=== PATIENT | female | born 1980 | race Two or more races ===

== ENCOUNTER → 2020-12-11 | Outpatient (CLI) | payer OTHER | END | disposition home or self-care (01) | LOC: RAD 09:46 | DX: M54.59 Other low back pain (principal); M54.16 Radiculopathy, lumbar region ==

== ENCOUNTER → 2021-04-11 11:17 | Outpatient (CLI) | payer OTHER | END | disposition home or self-care (01) | LOC: LAB 11:17 | PROVIDERS: ATTEND Obstetrics & Gynecology | DX: D50.9 Iron deficiency anemia, unspecified (principal); R10.9 Unspecified abdominal pain; E03.9 Hypothyroidism, unspecified; E55.9 Vitamin D deficiency, unspecified; Z12.11 Encounter for screening for malignant neoplasm of colon; E78.2 Mixed hyperlipidemia; N39.0 Urinary tract infection, site not specified ==

== ENCOUNTER 2021-04-11 11:50 | Outpatient (CLI) | payer OTHER | END 2021-04-11 12:00 | disposition home or self-care (01) | LOC: RAD 11:50 | PROVIDERS: ATTEND Obstetrics & Gynecology | DX: N64.4 Mastodynia (principal); R10.2 Pelvic and perineal pain; M54.50 Low back pain, unspecified; M51.26 Other intervertebral disc displacement, lumbar region; G60.9 Hereditary and idiopathic neuropathy, unspecified ==

== ENCOUNTER 2021-04-23 08:51 | Outpatient (CLI) | payer OTHER | END 2021-04-23 08:55 | disposition home or self-care (01) | LOC: LAB 08:51 | PROVIDERS: ATTEND Obstetrics & Gynecology | DX: R10.9 Unspecified abdominal pain (principal); N28.9 Disorder of kidney and ureter, unspecified ==

== ENCOUNTER 2021-04-29 08:00 | Outpatient (CLI) | payer OTHER | END 2021-04-29 08:09 | disposition home or self-care (01) | LOC: MRI 08:00 | PROVIDERS: ATTEND Obstetrics & Gynecology | DX: R19.00 Intra-abdominal and pelvic swelling, mass and lump, unspecified site (principal) | CPT/HCPCS: 72196 ==

== ENCOUNTER 2021-05-19 12:30 | Outpatient (CLI) | payer OTHER | END 2021-05-19 12:39 | disposition home or self-care (01) | LOC: RAD 12:30 | PROVIDERS: ATTEND Obstetrics & Gynecology Obstetrics | DX: Z01.810 Encounter for preprocedural cardiovascular examination (principal) ==

== ENCOUNTER 2021-07-01 07:33 | Outpatient (CLI) | payer OTHER | END 2021-07-01 07:38 | disposition home or self-care (01) | LOC: RAD 07:33 | PROVIDERS: ATTEND Obstetrics & Gynecology Obstetrics | DX: Z01.810 Encounter for preprocedural cardiovascular examination (principal) ==

== ENCOUNTER 2021-07-02 09:21 | Outpatient (CLI) | payer OTHER | END 2021-07-02 09:24 | disposition home or self-care (01) | LOC: LAB 09:21 | PROVIDERS: ATTEND Obstetrics & Gynecology Obstetrics | DX: Z01.812 Encounter for preprocedural laboratory examination (principal); D68.8 Other specified coagulation defects ==

== ENCOUNTER 2022-04-29 09:33 | Outpatient (CLI) | payer OTHER | END 2022-04-29 09:34 | disposition home or self-care (01) | LOC: LAB 09:33 | DX: D50.9 Iron deficiency anemia, unspecified (principal); R10.9 Unspecified abdominal pain; E03.9 Hypothyroidism, unspecified; E78.2 Mixed hyperlipidemia; N39.0 Urinary tract infection, site not specified; N91.2 Amenorrhea, unspecified ==

== ENCOUNTER 2022-05-11 13:28 | Outpatient (CLI) | payer OTHER | END 2022-05-11 13:39 | disposition home or self-care (01) | LOC: MAMO-SONO 13:28 | DX: R10.2 Pelvic and perineal pain (principal); N64.4 Mastodynia ==

== ENCOUNTER 2022-06-29 08:54 | Outpatient (CLI) | payer OTHER | END 2022-06-29 08:58 | disposition home or self-care (01) | LOC: LAB 08:54 | DX: N83.209 Unspecified ovarian cyst, unspecified side (principal); E27.9 Disorder of adrenal gland, unspecified; B34.9 Viral infection, unspecified ==

== ENCOUNTER 2022-08-09 15:29 | Outpatient (CLI) | payer OTHER | END 2022-08-09 15:47 | disposition home or self-care (01) | LOC: MRI 15:29 | DX: M25.562 Pain in left knee (principal); M25.462 Effusion, left knee; S83.242A Other tear of medial meniscus, current injury, left knee, initial encounter | CPT/HCPCS: 73718; 73721 ==